=== PATIENT | female | born 1990 | race Hispanic/Latino ===

== ENCOUNTER 2018-11-22 22:51 | Inpatient (IN) | payer SELFPAY ==
[~2018-11-22] VITALS: Ht 157.5 cm; Wt 112.5 kg
[2018-11-22 23:57] LABS: APPEARANCE,URINE Clear (CLEAR); BILIRUBIN,URINE Negative (NEGATIVE); COLOR,URINE Yellow (YELLOW); GLUCOSE, URINE (UA) Negative (NEGATIVE); KETONES,URINE >=160 mg/dL (NEGATIVE); LEUKOCYTE ESTERASE ,URINE Small (NEGATIVE); NITRATE,URINE Negative (NEGATIVE); OCCULT BLOOD,URINE Large (NEGATIVE); PH,URINE 5.5 (5.0-8.0); PROTEIN,URINE POS 1+ mg/dL (NEGATIVE)
[2018-11-22 23:58] LABS: HCG,QUAL RESULT NEGATIVE (NEGATIVE)
[2018-11-23] VITALS (19 sets, daily range): BP systolic 135–159; BP diastolic 81–99
[2018-11-23] MEDS ORDERED: SODIUM CHLORIDE 0.9% 1000ML 1,000 ML IV ONE ×2 (00:01→01:34)
[2018-11-23] MEDS ORDERED: MORPHINE SULFATE 4 MG/1ML SYG ONE ×3 (00:02→12:30)
[2018-11-23] MEDS ORDERED: ONDANSETRON HCL 4 MG/2 ML VIAL ONE ×2 (00:02→14:33)
[2018-11-23 00:05] LABS: BACTERIA,URINE Rare /HPF (None Seen); MUCUS,URINE Moderate LPF (None Seen); SQUAMOUS EPITHELIAL CELL,UR Few /HPF (0-2); WBC,URINE 0-1 /HPF (0-1)
[2018-11-23 00:08] LABS: BASOPHILS % (AUTO) 0.7 % (0.0-5.0); EOSINOPHILS % (AUTO) 0.6 % (0.0-8.0); HEMATOCRIT 43.1 % (36-48); LYMPHOCYTES % (AUTO) 12.6 % (21.0-51.0); MEAN CORPUSCULAR HEMOGLOBIN 27.5 pg (27.0-33.0); MEAN CORPUSCULAR HGB CONC 33.3 g/dL (32.0-36.0); MEAN CORPUSCULAR VOLUME 82.8 fL (79-99); MONOCYTES % (AUTO) 2.9 % (3.0-13.0); NEUTROPHILS % (AUTO) 83.2 % (40.0-77.0); NUCLEATED RED BLOOD CELLS 0.1 % (0.0-0.19); PLATELET COUNT (AUTO) 262 K/uL (130-400); RED CELL DISTRIBUTION WIDTH 14.4 % (11.0-15.5); WHITE BLOOD COUNT (AUTO) 10.8 K/uL (4.8-10.8)
[2018-11-23 01:05] LABS: CREATININE 0.7 mg/dL (0.5-1.5); POTASSIUM 3.5 mmol/L (3.5-5.1)
[2018-11-23 01:08] LABS: ALBUMIN 3.2 g/dL (3.5-5.0); BILIRUBIN,TOTAL 0.4 mg/dL (0.2-1.0)
[2018-11-23] MEDS ORDERED: IOHEXOL-350 75 ML VIAL IV ONE (01:40)
[2018-11-23] MEDS ORDERED: ZOSYN 3.375GM+NS 50ML 50 ML IV ONE (02:42)
[2018-11-23] MEDS ORDERED: HYDROMORPHONE 1 MG/1 ML AMP ONE (02:43)
--- NOTE | 2018-11-23 09:23 | NUR ---
TRACI Vázquez met with pt and her mother Cassandra Serrano [phone]. Pt reports she lives with her 2 kids 11,and 4. Pt works, is independent of all ADLS, drives, no DME or HH. Pt has no PCP or rx coverage and takes no daily medications. Pt states she has a bus trip planned to [place] Monday and asking if she will be able to still do. Kathie encouraged pt to discuss this with her surgeon/doctor.Plan is home at ut Addendum: 11/23/18 at 0926 by KYLIE WU Amended: Links added.
[2018-11-23] MEDS ORDERED: MORPHINE SULFATE 4 MG/1ML SYG IV PRN (12:30)
--- NOTE | 2018-11-23 12:37 | NUR ---
CONSENT PT HAD RECEIVED INFORMATION ON LAP APPY AND ACUTE APPENDICITIS; CONSENT THEN READ TO PATIENT, PT AND MOTHER VERBALIZED UNDERSTANDING AND PT SIGNED UNDERSTANDING OF CONSENT
--- NOTE | 2018-11-23 13:06 | NUR ---
TO HOLDING PT TRANSPORTED, VIA BED, AAO X3, IV PATENT AND SL; ACCOMPANIED BY WIL DIAS AND WIL ELIAS FOR UPCOMING SURGERY
[2018-11-23] MEDS ORDERED: PROPOFOL 10 MG/ML 20ML VIAL IV ONE (14:26)
[2018-11-23] MEDS ORDERED: LIDOCAINE PF 2% 5ML ABBOJECT ONE (14:26)
[2018-11-23] MEDS ORDERED: MIDAZOLAM HCL 1 MG/ML 2ML VIAL ONE (14:27)
[2018-11-23] MEDS ORDERED: FENTANYL CITRATE PF 50 MCG/1 ML 2ML VIAL ONE ×2 (14:28→15:42)
[2018-11-23] MEDS ORDERED: BUPIVACAINE/PF 0.5% 30ML VIAL ONE (14:38)
--- NOTE | 2018-11-23 14:38 | NUR ---
COCAINE use on 11/18 Sw contacted by nurse Werner, during assessment, pt admitted to cocaine use on Monday, while drink ing celebrating her birthday. Pt is currently in surgery, so I can not talk to her. CPS report was made to Sarah # [id number], #[phone]
[2018-11-23] MEDS ORDERED: ROCURONIUM 10MG/1ML SYR 10 MG/ML ML ONE (14:45)
[2018-11-23] MEDS ORDERED: ONDANSETRON HCL 4 MG/2 ML VIAL IVP ONE (14:45)
[2018-11-23] MEDS ORDERED: MORPHINE SULFATE 2 MG/ML 1ML SYG IV PRN (14:45)
[2018-11-23] MEDS ORDERED: CEFAZOLIN SODIUM 1 GM VIAL ONE (15:09)
[2018-11-23] MEDS ORDERED: ESMOLOL HCL 10 MG/ML 10 ML VIAL ONE (15:15)
[2018-11-23] MEDS ORDERED: GLYCOPYRROLATE 1 MG/5 ML SYRINGE ONE (15:22)
[2018-11-23] MEDS ORDERED: NEOSTIGMINE 5MG/5ML SYR IV ONE (15:23)
[2018-11-23] MEDS ORDERED: MEPERIDINE-PF 25 MG/ML SYG ONE ×2 (15:55→16:09)
[2018-11-23] MEDS: MORPHINE SULFATE 4 MG/1ML SYG IV PRN ×2 (16:06→19:06)
--- NOTE | 2018-11-23 16:45 | NUR ---
INCISIONS PT HAS 3 INCISIONS TO ABDOMEN, EACH COVERED BY A BAND-AID, ALL DRY AND INTACT; 1 TO UMBILICUS AREA, 1 TO LOWER LEFT QUADRANT, 1 TO LOWER CENTER OF ABDOMEN Addendum: 11/23/18 at 1705 by WOJCIECH TORRES RN Amended: Links added.
[2018-11-23] MEDS: ZOSYN 3.375GM+NS 50ML 50 ML IV SCH (19:31)
--- NOTE | 2018-11-23 19:35 | NUR ---
Patient in bed awake: Patient claimed, " I still have a lot of pain Morphine is not working. Ca you ask the Doctor if Ill get another pain medication." Patient informed given reassurance that Doctor order will check and informed M.D. We just need ttime for the medication to kick in. Patient verbalizes understanding.
--- NOTE | 2018-11-23 20:00 | NUR ---
Patient: Patient noted sleeping soundly.
--- NOTE | 2018-11-23 20:10 | NUR ---
Communication: Dr. Guerrero called informed that patient requested another pain medication aside from Morphine she claimed, " Morphine does not work." Pulse was high in 130's and Blood Pressure ranges from 135/81 to 156/86. Received orders to give Toradol 30 mg IV round the clock every 6 hours.
[2018-11-23] MEDS: KETOROLAC TROMETHAMINE 30MG/ML IV SCH (21:04)
[2018-11-23 21:18] LABS: BASOPHILS % (AUTO) 0.1 % (0.0-5.0); HEMATOCRIT 42.4 % (36-48); LYMPHOCYTES % (AUTO) 4.2 % (21.0-51.0); MEAN CORPUSCULAR HEMOGLOBIN 27.5 pg (27.0-33.0); MEAN CORPUSCULAR HGB CONC 32.6 g/dL (32.0-36.0); MEAN CORPUSCULAR VOLUME 84.4 fL (79-99); MONOCYTES % (AUTO) 3.1 % (3.0-13.0); NEUTROPHILS % (AUTO) 92.6 % (40.0-77.0); PLATELET COUNT (AUTO) 243 K/uL (130-400); RED BLOOD CELL COUNT(AUTO) 5.03 MIL/uL (4.00-5.50); RED CELL DISTRIBUTION WIDTH 14.2 % (11.0-15.5); WHITE BLOOD COUNT (AUTO) 11.9 K/uL (4.8-10.8)
[2018-11-23 21:59] LABS: BAND NEUTROPHILS % (MANUAL) 27 % (0-2); LYMPHOCYTES % (MANUAL) 4 % (22-44); MAN.DIFF COMMENT-IMPRESSION MANUAL DIFFERENTIAL; MONOCYTES % (MANUAL) 3 % (2-9); SEGMENTED NEUTROPHILS % 66 % (40-70)
[2018-11-24] VITALS (7 sets, daily range): BP systolic 106–134; BP diastolic 54–76
--- NOTE | 2018-11-24 01:30 | NUR ---
Patient: Patient wants to be covered with 3 thick blanket claimed, " I felt cold." Room Temperature was increased to 75.
[2018-11-24] MEDS: KETOROLAC TROMETHAMINE 30MG/ML IV SCH ×4 (02:57→22:43)
[2018-11-24] MEDS: ZOSYN 3.375GM+NS 50ML 50 ML IV SCH ×3 (03:03→22:39)
--- NOTE | 2018-11-24 03:30 | NUR ---
Communication: Dr. Guerrero called informed that patient's temperature 102.1 pulse rate 41, received orders to give Tylenol 650 mg Q 4 hours, BMP and CBC today. Orders noted.
[2018-11-24] MEDS ORDERED: ACETAMINOPHEN 325 MG TAB PO PRN ×2 (03:45→07:45)
[2018-11-24] MEDS: LACTATED RINGERS 1000ML 1,000 ML IV SCH ×3 (03:52→18:12)
[2018-11-24 05:11] LABS: HEMATOCRIT 39.1 % (36-48); MEAN CORPUSCULAR HEMOGLOBIN 27.6 pg (27.0-33.0); MEAN CORPUSCULAR HGB CONC 33.1 g/dL (32.0-36.0); MEAN CORPUSCULAR VOLUME 83.4 fL (79-99); PLATELET COUNT (AUTO) 224 K/uL (130-400); RED BLOOD CELL COUNT(AUTO) 4.69 MIL/uL (4.00-5.50); RED CELL DISTRIBUTION WIDTH 14.7 % (11.0-15.5); WHITE BLOOD COUNT (AUTO) 12.4 K/uL (4.8-10.8)
[2018-11-24 05:14] LABS: CREATININE 0.9 mg/dL (0.5-1.5); POTASSIUM 3.4 mmol/L (3.5-5.1)
[2018-11-24] MEDS ORDERED: ACETAMINOPHEN 325 MG TAB ONE (05:51)
[2018-11-24] MEDS: ONDANSETRON HCL 4 MG/2 ML VIAL IVP PRN ×2 (06:40→19:56)
--- NOTE | 2018-11-24 12:30 | NUR ---
ACTIVITY PT AMBULATING HALLWAY, STEADY GAIT, ACCOMPANIED BY MOTHER, TOLERATING WELL
[2018-11-24] MEDS: MORPHINE SULFATE 4 MG/1ML SYG IV PRN ×2 (13:01→20:40)
--- NOTE | 2018-11-24 14:03 | NUR ---
ACTIVITY PT AMBULATING HALLWAY, STEADY GAIT, ACCOMPANIED BY MOTHER, SPOKE WITH DR LORRAINE CHIU IN HALLWAY, HE ANSWERED ALL QUESTIONS AND CONCERNS AND INFORMED PT TO CONTINUE TO AMBULATE TO PASS FLATUS, PT HAS YET TO PASS FLATUS
--- NOTE | 2018-11-24 16:18 | NUR ---
ACTIVITY PT AMBULATING HALLWAY, STEADY GAIT, TOLERATING WELL
--- NOTE | 2018-11-24 16:55 | NUR ---
ACTIVITY PT AMBULATING HALLWAY, STEADY GAIT, IV PATENT AND INFUSING, TOLERATING WELL
--- NOTE | 2018-11-24 19:45 | NUR ---
COMFORT PT C/O NAUSEA, WILL MEDICATE, ENCOURAGED TO AMBULATE IN HALLWAY, NOT PASSING FLATUS Addendum: 11/25/18 at 0523 by BRUCE BLEDSOE LVN Amended: Links added.
[2018-11-25] MEDS: MORPHINE SULFATE 4 MG/1ML SYG IV PRN ×2 (02:35→08:57)
[2018-11-25 04:00] VITALS: BP 135/79
[2018-11-25] MEDS: KETOROLAC TROMETHAMINE 30MG/ML IV SCH ×3 (04:15→15:09)
[2018-11-25] MEDS: LACTATED RINGERS 1000ML 1,000 ML IV SCH (06:03)
[2018-11-25] MEDS: ZOSYN 3.375GM+NS 50ML 50 ML IV SCH ×2 (06:03→14:55)
[2018-11-25 07:41] VITALS: BP 122/63
[2018-11-25 11:53] VITALS: BP 117/65
--- NOTE | 2018-11-25 13:30 | NUR ---
UP AMBULATING IN HALLWAY.
--- NOTE | 2018-11-25 15:30 | NUR ---
DR. CHIU ROUNDED AND DISCHARGED PATIENT ON TYLENOL #3. INDICATE TO LET ANTIBIOTIC FINISHED AND THEN DISCHARGE TO HOME AND FOLLOW UP IN CLINIC IN ONE WEEK.
[2018-11-25 16:21] VITALS: BP 130/83
--- NOTE | 2018-11-25 18:00 | NUR ---
DISCHARGE INSTRUCTIONS GIVEN AND SCRIPT FOR TYLENOL #3 GIVEN TO PATIENT. PATIENT STABLE AND DISCHARGE GIVEN.
--- NOTE | 2018-11-25 18:40 | NUR ---
PATIENT WAS TAKEN VIA W/C TO [facility] AND WAS DISCHARGED TO HER MOTHER IN STABLE CONDITION. PIV REMOVED PRIOR TO DISCHARGE AND ZOSYN ANTIBIOTIC WAS COMPLETED.
== END 2018-11-25 18:40 | disposition home or self-care (01) | DRG 343 ==
LOC: EDH 22:51 → EDHIP 22:52 → WSH 11-23 09:30
PROVIDERS: ADMIT Surgery; ATTEND Surgery
PROC: 0DTJ4ZZ Resection of Appendix, Percutaneous Endoscopic Approach (ICD-10-PCS; principal; 2018-11-23 15:12)
DX: K35.80 Unspecified acute appendicitis (principal)
CPT/HCPCS: 36415; 74177; 80048; 80053; 81001; 81025; 85025; 85027; 93005; G0378; J0690; J1170; J1885; J2001; J2175; J2250; J2270; J2405; J2543; J2704; J2710; J3010; J3490; J7030; J7120; Q9967

== ENCOUNTER 2022-12-09 19:52 | Emergency (ER) | payer BC, OTHER ==
[~2022-12-09] VITALS: Ht 154.9 cm; Wt 119.7 kg
[2022-12-09 21:07] LABS: BASOPHILS # (AUTO) 0.05 K/uL (0.00-0.20); BASOPHILS % (AUTO) 0.7 % (0.0-5.0); EOSINOPHILS # (AUTO) 0.13 K/uL (0.00-0.70); EOSINOPHILS % (AUTO) 1.8 % (0.0-8.0); HEMATOCRIT 45.5 % (36-48); IMMATURE GRANULOCYTE ABSOLUTE 0.01 K/uL (0-1); LYMPHOCYTES # (AUTO) 2.6 K/uL (1.0-4.8); LYMPHOCYTES % (AUTO) 35.7 % (21.0-51.0); MEAN CORPUSCULAR HEMOGLOBIN 26.6 pg (27.0-33.0); MEAN CORPUSCULAR HGB CONC 32.1 g/dL (32.0-36.0); MONOCYTES # (AUTO) 0.5 K/uL (0.1-1.0); NEUTROPHILS # (AUTO) 3.9 K/uL (1.8-7.7); NEUTROPHILS % (AUTO) 54.7 % (40.0-77.0); PLATELET COUNT (AUTO) 277 K/uL (130-400); RED BLOOD CELL COUNT(AUTO) 5.48 MIL/uL (4.00-5.50); RED CELL DISTRIBUTION WIDTH 14.7 % (11.0-15.5); WHITE BLOOD COUNT (AUTO) 7.2 K/uL (4.8-10.8)
[2022-12-09 21:18] LABS: CREATININE 0.8 mg/dL (0.5-1.5)
[2022-12-09 21:23] LABS: ALBUMIN 3.3 g/dL (3.5-5.0); BILIRUBIN,TOTAL 0.3 mg/dL (0.2-1.0); TOTAL PROTEIN, SERUM 7.3 g/dL (6.0-8.3)
[2022-12-09] MEDS ORDERED: KETOROLAC 60 MG VIAL (30MG/ML) IM ONE (22:00)
[2022-12-09] MEDS ORDERED: METOCLOPRAMIDE 10 MG/2 ML VIAL IM ONE (22:00)
[2022-12-09] MEDS ORDERED: DiphenhydrAMINE HCL 50 MG/ML VIAL IM ONE (22:00)
[2022-12-09 22:25] VITALS: BP 142/60; PULSE 74; RESP 16; O2SAT 98
== END 2022-12-09 22:49 | disposition home or self-care (01) ==
LOC: EDH 19:52
DX: G43.909 Migraine, unspecified, not intractable, without status migrainosus (principal); E66.01 Morbid (severe) obesity due to excess calories; Z68.42 Body mass index [BMI] 45.0-49.9, adult; Z90.49 Acquired absence of other specified parts of digestive tract
CPT/HCPCS: 99284; 84484; 80053; 84703; 85025; 36415; 96372 ×3; 93005; J1200; J1885; J2765

== ENCOUNTER 2025-04-04 10:24 | Emergency (ER) | payer SELFPAY ==
[~2025-04-04] VITALS: Ht 154.9 cm; Wt 65.8 kg
[2025-04-04 11:46] LABS: INFLUENZA TYPE A Negative For Type A (NEGATIVE); INFLUENZA TYPE B Negative For Type B (NEGATIVE)
[2025-04-04 11:47] LABS: COVID19 (SARS ANTIGEN RAPID) PRESUMPTIVE NEGATIVE (NEGATIVE)
[2025-04-04 12:24] VITALS: BP 129/84; PULSE 89; RESP 18; TEMP 98.1; O2SAT 97
[2025-04-04] MEDS ORDERED: DOXY100C5 PO (12:46)
[2025-04-04] MEDS ORDERED: PRED20TA3 PO (12:46)
--- NOTE | 2025-04-04 12:46 | ERN ---
ED Note History of Present Illness Stated Complaint: HEADACHE/ COUGH Chief Complaint: Cough Time Seen by MD: 10:27 Dictation: 34-year-old female with cough cold congestion and headaches patient reports similar episodes in the past, has had chronic headaches. Sees her primary care doctor but has not seen her in the past month. Patient denies any chest pain shortness of breath. Patient is on lisinopril but has not no throat swelling. Allergies: Coded Allergies: No Known Drug Allergies (Unverified Allergy, Unknown, 11/23/18) Home Meds No Active Prescriptions or Reported Meds Past Medical History Past Medical History: No Pertinent History Surgical History: None Family History: HTN Social History: Negative Review of System Dictation Constitutional: Negative for fever,chills, and weight loss Eyes: Negative for injury, pain,redness, and discharge ENT: Per HPI Cardiovascular: Negative for chest pain, palpitations, and edema Respiratory: Negative for shortness of breath, cough, and wheezing, Abdomen/GI: Negative for abdominal pain, nausea, vomiting, diarrhea, and constipation Back: Negative for injury and pain : Negative for injury, bleeding and discharge MS/Extremity: Negative for injury and deformity Skin: Negative for rash, and discoloration Neuro: Per HPI Initial Vital Sign VS Vital Signs Date Time Temp Pulse Resp B/P (MAP) Pulse Ox O2 Delivery O2 Flow Rate FiO2 04/04/25 12:13 97.9 92 18 129/84 99 Room Air 0 04/04/25 12:24 21 Physical Exam Dictation General: awake, alert, NAD Head/Face: Normocephalic, atraumatic Eyes: PERRL, EOMI, vision at baseline ENT: oral cavity clear, TMs clear, no signs of infection Neck: Trachea midline, supple, no nuchal rigidity Cardiovascular: RRR, normal S1/S2, No MRGs, no JVD Respiratory: CTAB, no respiratory distress, No rales or wheezes Abdomen: Soft, non-tender, non-distended, normal bowel sounds, no guarding or rebound. Skin: Warm, dry, normal turgor, no rash MS/Extremity: Pulses equal, no cyanosis, neurovascular intact, FROM Neuro: COAx4, GCS 15, strength 5/5, CN 2-12 intact, normal cerebellar exam, normal gait, Psych: Normal behavior, mood, and affect normal Results (Laboratory/Radiology) Laboratory/Radiology Laboratory Tests Test 04/04/25 10:35 Influenza Type A Antigen Negative For Type A Influenza Type B Antigen Negative For Type B SARS-CoV-2 Antigen (Rapid) PRESUMPTIVE NEGATIVE Labs Reviewed?: Yes ED Course ED Course Orders Procedure Category Date Status Time Covid19 (Sars Antigen LAB 04/04/25 Complete Rapid) 10:28 Influenza Type A & B, LAB 04/04/25 Complete Rapid 10:28 Dexamethasone 10mg/Ml PHA 04/04/25 Complete 1ml Vial (Dexameth 10:59 Ketorolac PHA 04/04/25 Complete Tromethamine 15mg/Ml 10:59 Current Medications Medications (Trade) Dose Ordered Sig/Jason Route PRN Reason Start Time Stop Time Status Last Admin Dose Admin Dexamethasone Sodium Phosphate (dexaMETHasone 10MG/ML 1ML VIAL) 10 mg ONCE STAT IM 04/04/25 10:59 04/04/25 11:03 DC 04/04/25 11:31 Ketorolac Tromethamine (toRADol) 15 mg ONCE STAT IM 04/04/25 10:59 04/04/25 11:03 DC 04/04/25 11:32 Vital Signs Date Time Temp Pulse Resp B/P (MAP) Pulse Ox O2 Delivery O2 Flow Rate FiO2 04/04/25 12:24 98.1 89 18 129/84 97 Room Air* 0 21 04/04/25 12:13 97.9 92 18 129/84 99 Room Air 0 Medical Decision Making MDM MDM: Differential diagnosis: Rationale: Tests considered and ordered secondary to shared decision making inc lude: Previous outside records reviewed: Old ER visits. Risk of complication and/or morbidity or mortality of patient management: None Medications-Per medication reconciliation Need for hospitalization: Patient does not meet criteria for hospitalization. Need for emergency major/minor surgery: No There are no social concerns with this patient. Prescription drug management Prescriptions will include symptomatic care Patient's prior external medical records from other ER visits were reviewed by me as indicated. Prior testing and results from previous visits were reviewed. Prior tests were taken into account with medical decision making and resource utilization, independent historian/historians were used to obtain complete medical history. I independently interpreted the test that were performed, results were reviewed by me and considered findings on radiology if ordered. Medical management and examination interpretation discussions were had by me with other qualified healthcare professionals as indicated for the patient's care. 34-year-old female with sinus congestion and headache, stable exam normal neuro exam, no CT scan indicated prescriptions given stable for discharge. DX & DISP Disposition: Discharge Departure Impression: Primary Impression: Sinus headache Condition: Stable Scripts Prednisone (Prednisone) 20 Mg Tablet 20 MG PO DAILY for 5 Days, #5 TAB Prov: VIRGINIA ZAMBRANO MD 04/04/25 Doxycycline Hyclate (Doxycycline Hyclate) 100 Mg Capsule 1 CAP PO BID for 10 Days, #20 CAP 0 Refills Prov: VIRGINIA ZABMRANO MD 04/04/25 Referrals: SELF,REFERRAL (PCP) VIRGINIA ZAMBRANO MD Apr 04, 2025 12:46
== END 2025-04-04 12:55 | disposition home or self-care (01) ==
LOC: EDH 10:24
DX: R51.9 Headache, unspecified (principal); R05.9 Cough, unspecified; R09.81 Nasal congestion; Z20.822 Contact with and (suspected) exposure to COVID-19
CPT/HCPCS: 99284; 87426; 87804 ×2; 96372 ×2; J1885; J1100